=== PATIENT | female | born 1945 | race Caucasian/White ===

== ENCOUNTER → 2018-10-28 09:11 | Outpatient (CLI) | payer MEDICARE, SELFPAY ==
--- NOTE | 2018-10-28 09:14 | DI.US.S_ITS ---
PROCEDURE: US PELVIC COMPLETE INDICATIONS: POST MENOPAUSAL BLEEDING TECHNIQUE: Real-time scanning was performed of the pelvic organs, with image documentation. Additional endovaginal scanning was necessary due to incomplete visualization of the adnexal and endometrial structures by transabdominal scanning. COMPARISON: None. FINDINGS: Transabdominal scanning: Limited scanning through the kidneys shows no hydronephrosis. No pathologic free abdominal or pelvic fluid. Endovaginal scanning: Uterus: Uterus is normal in size at 9.6 x 6.8 x 9.7 cm. The endometrium not visualized secondary to a large uterine leiomyoma. There is a large intramural uterine leiomyoma measuring 6.9 x 5.8 x 6.8 cm arising from the left uterine wall. Ovaries: Ovaries are not visualized. No adnexal mass. IMPRESSION: 1. A large intramural uterine leiomyoma measuring 6.9 x 5.8 x 6 point centimeter. 2. Endometrium is not visualized. If clinically indicated, gynecological pelvic MRI may be helpful for further evaluation in this patient with postmenopausal bleeding. 3. Nonvisualization of ovaries. Dictated by: Louise Kessler M.D. on 10/28/2018 at 11:30 Approved by: Louise Kessler M.D. on 10/28/2018 at 11:33
== END ==
PROVIDERS: PCP Physician Assistant; Visit Provider Physician Assistant
DX: N95.0 Postmenopausal bleeding (principal); D25.1 Intramural leiomyoma of uterus; N95.2 Postmenopausal atrophic vaginitis; Z85.3 Personal history of malignant neoplasm of breast
CPT/HCPCS: 76830; 76856

== ENCOUNTER → 2019-09-08 13:21 | Outpatient (CLI) | payer MEDICARE, SELFPAY | PROVIDERS: PCP Physician Assistant; Visit Provider Physician Assistant | DX: R30.0 Dysuria (principal) | CPT/HCPCS: 87086 ==

== ENCOUNTER → 2021-03-20 12:11 | Outpatient (CLI) | payer MEDICARE, SELFPAY | PROVIDERS: PCP Nurse Practitioner Family; Referring Provider Physician Assistant; Visit Provider Physician Assistant | DX: N34.3 Urethral syndrome, unspecified (principal) | CPT/HCPCS: 87077; 87086; 87186 ==

== ENCOUNTER → 2024-07-07 09:45 | Outpatient (CLI) | payer MEDICARE, SELFPAY ==
--- NOTE | 2024-07-07 09:49 | DI.CT.S_ITS ---
PROCEDURE: CT CHEST ABD PEL W CON INDICATIONS: malignant neoplasm of uterus TECHNIQUE: After the administration of intravenous contrast, 5 mm thick sections acquired from the lung apices to the symphysis. 5 mm coronal and sagittal reformats were performed, with additional 7 mm MIP reformats through the lungs. For radiation dose reduction, the following was used: automated exposure control, adjustment of mA and/or kV according to patient size. COMPARISON: [facility], , CT THORAX/ ABD/ PELVIS WITH CONTRAST, 06/24/2021, 8:06. [facility], [place], CT THORAX/ ABD/ PELVIS WITH CONTRAST, 09/09/2022, 9:19. [place], [place] PET CT FUSION SKULL 2 THIGH, 12/22/2023, 10:08. [place], [place] PET CT FUSION SKULL 2 THIGH, 03/15/2024, 9:32. FINDINGS: Image quality: Excellent. CHEST: Lower Neck: No enlarged lymph nodes. Thyroid: No thyroid nodules which require sonographic follow up, per consensus guidelines. Axillae: No enlarged lymph nodes. Left axillary lymph node dissection. Chest Wall: Epidermal cystic lesion in the medial right breast, probably representing an epidermal cyst; this did not demonstrate FDG uptake but has demonstrated slow interval growth since 2022. Lungs and Pleura: No pneumothorax or pleural effusions. Anterior reticulation of the left lung, presumably post radiation change. Heart: Heart size is normal. No pericardial effusion. Thoracic Vessels: The aorta and pulmonary arteries demonstrate normal size. Mediastinum and Roshni: No enlarged lymph nodes. Esophagus: No wall thickening. No hiatal hernia. ABDOMEN: Liver: No solid mass. Hepatic steatosis. Patent portal vein. Gallbladder: No radiopaque gallstones or wall thickening. Biliary ducts: No biliary dilation. Pancreas: No ductal dilation. Spleen: Size is within normal limits. Posttreatment change along the medial aspect of the spleen. Adrenal Glands: No adrenal nodules. Kidneys and Ureters: No hydronephrosis. No solid mass. No complex renal cystic lesion which requires follow up. Stomach and Bowel: Normal colonic caliber, without significant wall thickening. 4.2 x 3.7 centimeter duodenal diverticulum extending off the 3rd segment. Colonic diverticulosis without evidence of diverticulitis. Peritoneum: No abnormal intraperitoneal fluid. No free air. Stable non FDG avid peritoneal nodules in the right upper quadrant compared with 2020, favoring a benign etiology. Ventral Wall: No significant ventral hernia. Abdominal Nodes: No retroperitoneal or mesenteric adenopathy by size criteria. Vessels: Aorta and inferior vena cava are normal in size. PELVIS: Pelvic Organs: Hysterectomy. Stable presacral lesion without FDG uptake measuring 3.2 x 3.7 centimeters (series 2, image 185). Bladder: No bladder wall thickening, accounting for underdistention. Pelvic Nodes: No enlarged lymph nodes. Miscellaneous: Left inguinal hernia containing a short segment of nonobstructed sigmoid colon. Bones: No aggressive osseous abnormality. IMPRESSION: Hysterectomy and bilateral salpingo oophorectomy. No measurable disease. Stable soft tissue mass in the presacral space, without appreciable FDG uptake. The differential for this type of lesion is broad, but lack of FDG uptake and significant interval change favors a benign etiology. Posttreatment change in the spleen. Stable non FDG avid right upper quadrant peritoneal nodules compared with 2020. Dictated by: Ludin Brooks M.D. on 07/07/2024 at 12:35 Approved by: Ludin Brooks M.D. on 07/07/2024 at 12:49
[2024-07-07 10:13] LABS: Estimated Glomerular Filt Rate > 60 mL/min (>60)
== END ==
PROVIDERS: Radiology Diagnostic Radiology; PCP Registered Nurse Diabetes Educator; Referring Provider Internal Medicine; Visit Provider Internal Medicine
DX: C55 Malignant neoplasm of uterus, part unspecified (principal); C79.9 Secondary malignant neoplasm of unspecified site; K76.0 Fatty (change of) liver, not elsewhere classified; K57.90 Diverticulosis of intestine, part unspecified, without perforation or abscess without bleeding; K57.10 Diverticulosis of small intestine without perforation or abscess without bleeding; K40.90 Unilateral inguinal hernia, without obstruction or gangrene, not specified as recurrent; K66.9 Disorder of peritoneum, unspecified; Z90.710 Acquired absence of both cervix and uterus; Z90.722 Acquired absence of ovaries, bilateral
CPT/HCPCS: 36415; 71260; 74177; 82565; Q9967

== ENCOUNTER → 2024-11-28 07:47 | Outpatient (CLI) | payer MEDICARE, SELFPAY ==
--- NOTE | 2024-11-28 07:51 | DI.CT.S_ITS ---
PROCEDURE: CT CHEST ABD PEL W CON INDICATIONS: ENDOMETRIAL CANCER TECHNIQUE: After the administration of intravenous contrast, 5 mm thick sections acquired from the lung apices to the symphysis. 5 mm coronal and sagittal reformats were performed, with additional 7 mm MIP reformats through the lungs. For radiation dose reduction, the following was used: automated exposure control, adjustment of mA and/or kV according to patient size. COMPARISON: [facility], , CT THORAX/ ABD/ PELVIS WITH CONTRAST, 09/09/2022, 9:19. [facility] [place], [place], [place] PET CT FUSION SKULL 2 THIGH, 03/15/2024, 9:32. [facility] [place], [place], CT CHEST ABD PEL W CON, 07/07/2024, 11:21. FINDINGS: Image quality: Excellent. CHEST: Lower Neck: No enlarged lymph nodes. Thyroid: No thyroid nodules which require sonographic follow up, per consensus guidelines. Axillae: Left axillary lymph node dissection. Chest Wall: Growing epidermal lesion along the upper, inner right breast measuring 1.8 x 1.1 cm, previously 1.6 x 1.0 cm in 2023 and 0.6 x 0.5 cm in 2022. Suspected left breast lumpectomy changes. Lungs and Pleura: No pneumothorax or pleural effusions. No consolidation or suspicious nodules. Radiated fibrosis in the anterior left lung. Heart: Heart size is normal. No pericardial effusion. Thoracic Vessels: The aorta and pulmonary arteries demonstrate normal size. Mediastinum and Roshni: No enlarged lymph nodes. Esophagus: No wall thickening. No hiatal hernia. ABDOMEN: Liver: At least moderate hepatic steatosis. 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 Gallbladder: Absent. Biliary ducts: No biliary dilation. Pancreas: No ductal dilation. Spleen: Low attenuating lesion along the medial margin measuring 0.9 cm, previously 1.4 cm in 2022. Adrenal Glands: No adrenal nodules. Kidneys and Ureters: No hydronephrosis. No solid mass. No complex renal cystic lesion which requires follow up. Stomach and Bowel: Normal colonic caliber, without significant wall thickening. Colonic diverticulosis without evidence of diverticulitis. Peritoneum: Stable peritoneal nodules in the right upper quadrant, largest measuring 9 mm (series 2, image 103). This nodule measured 10 mm in 2022. Stable perirectal mass measuring 3.3 cm in the deep pelvis (series 2, image 185). Ventral Wall: No significant ventral hernia. Abdominal Nodes: No retroperitoneal or mesenteric adenopathy by size criteria. Vessels: Aorta and inferior vena cava are normal in size. PELVIS: Pelvic Organs: Hysterectomy and bilateral salpingo oophorectomy . Bladder: No bladder wall thickening, accounting for underdistention. Pelvic Nodes: No enlarged lymph nodes. Miscellaneous: Left direct inguinal hernia containing a short segment of nonobstructed large bowel . Bones: No aggressive osseous abnormality. IMPRESSION: Hysterectomy and bilateral salpingo oophorectomy. Stable peritoneal nodules in the right upper quadrant and mesorectal mass adjacent to the mid to lower rectum. Stable low attenuating splenic lesion compared with 2023, decreased in size compared with 2022. Growing epidermal lesion along the upper, inner right breast measuring 1.8 x 1.1 cm, previously 1.6 x 1.0 cm in 2023 and 0.6 x 0.5 cm in 2022. Findings probably representing an epidermal inclusion cyst but malignancy is also consideration. Recommend direct visualization and consider ultrasound. Dictated by: Ludin Brooks M.D. on 11/28/2024 at 14:38 Approved by: Ludin Brooks M.D. on 11/28/2024 at 14:48
[2024-11-28 08:31] LABS: Estimated Glomerular Filt Rate > 60 mL/min (>60)
== END ==
PROVIDERS: Radiology Diagnostic Radiology; PCP Registered Nurse Diabetes Educator; Referring Provider Internal Medicine; Visit Provider Internal Medicine
DX: C54.1 Malignant neoplasm of endometrium (principal); N63.12 Unspecified lump in the right breast, upper inner quadrant; K66.9 Disorder of peritoneum, unspecified; K62.9 Disease of anus and rectum, unspecified; D73.9 Disease of spleen, unspecified; K76.0 Fatty (change of) liver, not elsewhere classified; K57.90 Diverticulosis of intestine, part unspecified, without perforation or abscess without bleeding; K40.90 Unilateral inguinal hernia, without obstruction or gangrene, not specified as recurrent; Z90.49 Acquired absence of other specified parts of digestive tract; Z90.710 Acquired absence of both cervix and uterus; Z90.722 Acquired absence of ovaries, bilateral
CPT/HCPCS: 36415; 71260; 74177; 82565; Q9967

== ENCOUNTER → 2025-03-08 11:50 | Outpatient (CLI) | payer MEDICARE, SELFPAY ==
[2025-03-08 13:45] LABS: TSH w/ Reflex to FT4 2.63 uIU/mL (0.47-4.68)
== END ==
PROVIDERS: PCP Registered Nurse Diabetes Educator; Referring Provider Registered Nurse Diabetes Educator; Visit Provider Registered Nurse Diabetes Educator
DX: E03.9 Hypothyroidism, unspecified (principal)
CPT/HCPCS: 36415; 84443